=== PATIENT | female | born 1980 | race Caucasian/White ===

== ENCOUNTER 2016-09-18 10:54 | Emergency (ER) | payer MEDICAID, OTHER ==
[2016-05-13 07:44] VITALS: BMI 19.1
[2016-09-18] MEDS ORDERED: Lactated Ringer's 1,000 ML IV ONE (11:03)
[2016-09-18 11:37] VITALS: TEMP 97.3
[2016-09-18 11:46] LABS: EOS % 0.1 % (0.0-4.0); LYMPH # 0.4 K/uL (1.0-4.3); MONO # 0.3 K/uL (0.0-0.8); MONO % 3.6 % (0.0-10.0); RBC 2.74 Mil/uL (3.80-5.20); RED CELL DISTRIBUTION WIDTH 12.4 % (11.5-14.5)
[2016-09-18 11:58] LABS: GFR AFRICAN-AMERICAN > 60; GFR NON-AFRICAN AMERICAN > 60
[2016-09-18 11:59] LABS: ALT/SGPT 24 U/L (9-52); AST/SGOT 25 U/L (14-36); BASO % 0.1 % (0.0-2.0); BLOOD UREA NITROGEN 6 mg/dL (7-17); HEMOGLOBIN 9.7 g/dL (11.0-16.0); LYMPH % 4.9 % (20.0-40.0); MEAN CORPUSCULAR HEMOGLOBIN 35.3 pg (27.0-31.0); MEAN CORPUSCULAR HGB CONC 34.2 g/dL (33.0-37.0); MEAN PLATELET VOLUME 8.7 fL (7.2-11.7); NEUT # 7.6 K/uL (1.8-7.0); NEUT % 91.3 % (50.0-75.0); PLATELET COUNT 151 K/uL (130-400); URIC ACID 2.8 mg/dL (2.2-7.5)
[2016-09-18 12:00] LABS: CALCIUM 8.4 mg/dl (8.6-10.4)
[2016-09-18 12:01] LABS: MEAN CELL VOLUME 103.2 fL (81.0-99.0); WHITE BLOOD COUNT 8.3 K/uL (4.8-10.8)
[2016-09-18 12:04] LABS: SQUAMOUS EPITHIAL 6 /hpf (0-5); URINE BILIRUBIN NEGATIVE (NEGATIVE); URINE BLOOD 1+ (NEGATIVE); URINE CLARITY Clear (Clear); URINE COLOR Yellow (YELLOW); URINE GLUCOSE (UA) 1+ mg/dL (Normal); URINE LEUKOCYTE ESTERASE TRACE Leu/uL (Negative); URINE NITRATE NEGATIVE (NEGATIVE); URINE PROTEIN NEGATIVE (NEGATIVE); URINE UROBILINOGEN NORMAL mg/dL (0.2-1.0)
[2016-09-18 12:11] LABS: PROTHROMBIN TIME 10.6 SECONDS (9.7-12.2)
[2016-09-18 12:29] LABS: BANDS 8 % (0-2); EOSINOPHIL 2 % (0-4); LYMPHOCYTE 7 % (20-40); MONOCYTE 7 % (0-10); NEUTROPHIL 76 % (50-75); PLATELET ESTIMATE NORMAL (NORMAL); TOTAL CELLS COUNTED 100
[2016-09-18] MEDS ORDERED: Apap-Butalbital-Caffeine 325-50-40mg Tab PO STA (12:39)
[2016-09-18] MEDS ORDERED: Sodium Chloride 0.9% 1,000 ML IV SCH (13:00)
--- NOTE | 2016-09-18 16:39 | OBHP ---
Datetime: 09/18/2016 11:05 IP Adm Impression: , intrauterine IP Chief Complaint Other: headache IP Adm Impression Other: uti IP Admit Plan: Discharge home Admit Comment, IP Provider: chief complaint-hedache HPI 35 y/o at 29.1 wga with c/o headache since last last evening.Headche is bilateral on both sides of head and back of heada.patient states that it is dull /throbbing and constant.She took tly enol at 6 pm yesterday but had no relife.has been drinking fluids but no relife as such.Headche was w orse today and hence she came to er.She deneis any vision, changes, chest pain, shortness of breath, numbness or tingling in hands and feet.Denies epigastric pain or right upper quadrant pain Patient ate cereala nd milk at 9.30 am and then came to hospital course-AMA at delivery; hx of geital herpes outbreak in may; Abnormal quad screen.had g enetic cousnelling but no amnio; hx of child with autistic spectrum disorder PMH denies PSH s/o left oophorectomy OBGYN HX ; hx of delivery with 1 and 2 nd child; last 2 deliveries full term; 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 hedacahe minimally improved with tylenol.Patient wi th hematuria.Had no blood in urine on UA done08/26/2016 .Repeat fs 208 -approx 4 hours after breakfast ) -give 1 tablet pof fioricet -normal saline at 125ml/hour -check fs in 2 hours 07/08 pm fs 2 hr later 43 patient given orange juice after which the blood sugar was 73mg/dl Patient states that she feels hungry and her headache is much improved now She denies any neurological symptoms A/P uti, elevated blood sugar initially and headache -headache improved with fioricet and iv fluids. -patient with elevated blood sugar after eating cereal but later on hypoglycemic and then euglycem ic.Patient advised to follow up in am in clinic and do 1 hour gtt .Emphasized the importance of blood sugar control in -UTI.Script for macrobid given -hsv outbreak in .no symptoms now.discussed starting valtrex for suppressive therapy now. patient states that she will discuss with her doctor tomorrow Pelvic Type - PN: Adequate Extremities - PN: Normal Abdomen - PN: Normal Back - PN: Normal Lungs - PN: Normal Heart - PN: Normal General - PN: Normal Contraction Comments Provider: none Gestation - Est Wks by US: 29.2 IP Hx Assessment: The History has been Reviewed and is Current Vital Signs Provider: Reviewed; Within Normal Limits FHR Category Provider Fetus A: Category I
== END 2016-09-18 16:24 | disposition home or self-care (01) ==
LOC: C.EROB 10:54
DX: O26.893 Other specified pregnancy related conditions, third trimester (principal); R51 Headache; R31.9 Hematuria, unspecified; Z3A.29 29 weeks gestation of pregnancy
CPT/HCPCS: 80053; 81001; 82948; 83615; 84550; 85025; 85384; 85610; 85730; 99283; J7040; J7120

== ENCOUNTER 2016-09-19 09:33 | Emergency (ER) | payer OTHER ==
[2016-09-19 09:50] VITALS: BMI 21.9
--- NOTE | 2016-09-19 11:37 | C.PDOC ---
History Of Present Illness 35 year old female who is 25 weeks presents to the ER with a complaint of a posterior headache for the past 2 days. Patient has not taken anything for the pain and is requesting a note for the work because she does not want to go to work tomorrow. Patient reports intermittent vomiting during her ; denies vaginal bleeding, vaginal discharge, dysuria, or abdominal pain. Time Seen by Provider: 09/19/16 10:24 Chief Complaint (Nursing): GI Problem History Per: Patient History/Exam Limitations: no limitations Onset/Duration Of Symptoms: Days (2) Current Symptoms Are (Timing): Still Present Preceeding Symptoms: None Associated Symptoms: denies: Photophobia, Blurred Vision, Nausea, Vomiting, Extremity Weakness Recent travel outside of the [place]: No Past Medical History Reviewed: Historical Data, Nursing Documentation, Vital Signs Vital Signs: Last Vital Signs Temp 97.7 F 09/19/16 13:51 Pulse 100 H 09/19/16 13:51 Resp 18 09/19/16 13:51 BP 101/62 09/19/16 13:51 Pulse Ox 100 09/19/16 13:51 - Medical History PMH: No Chronic Diseases Surgical History: No Surg Hx - [facility] Procedures MANUAL ASSIST DELIV NEC (03/11/14) Family History: States: Unknown Family Hx - Social History Hx Tobacco Use: No Hx Alcohol Use: No Hx Substance Use: No - Immunization History Hx Tetanus Toxoid Vaccination: No Hx Influenza Vaccination: No Hx Pneumococcal Vaccination: No Review Of Systems Constitutional: Negative for: Fever, Chills Eyes: Negative for: Vision Change Cardiovascular: Negative for: Chest Pain, Palpitations, Orthopnea, Edema, Light Headedness Respiratory: Negative for: Cough, Shortness of Breath, SOB with Excertion, Wheezing Gastrointestinal: Positive for: Vomiting (occasional). Negative for: Abdominal Pain, Diarrhea, Constipation Genitourinary: Negative for: Dysuria, Vaginal Discharge, Vaginal Bleeding Neurological: Positive for: Headache. Negative for: Weakness, Numbness Physical Exam - Physical Exam Appears: Well, Non-toxic Skin: Normal Color, Warm, Dry Head: Atraumatic, Normacephalic Eye(s): bilateral: Normal Inspection, PERRL, EOMI Oral Mucosa: Moist Throat: Normal, No Erythema, No Exudate Neck: Normal, No Midline Cervical Tenderness, No Paracervical Tenderness, Supple Chest: Symmetrical, No Tenderness Cardiovascular: Rhythm Regular, No Murmur Respiratory: Normal Breath Sounds, No Rales, No Rhonchi, No Wheezing Gastrointestinal/Abdominal: Soft, No Tenderness, No Mass, No Distention, Other ( Gravid) Back: Normal Inspection, No CVA Tenderness Extremity: Normal ROM Neurological/Psych: Oriented x3, Normal Speech, Normal Cognition, Normal Cranial Nerves, Other (No focal deficits) Gait: Steady ED Course And Treatment O2 Sat by Pulse Oximetry: 100 (Room air) Pulse Ox Interpretation: Normal Medical Decision Making Medical Decision Making: Patient is 25 weeks with headache. It is not the worst headache or her life. She has no fever, neck pain, or trauma history. She has normal BP. She is neurologically intact. Will give tylenol and benadryl for the pain; 12:25PM Patient feels better. UA shows rare bacteria but also 1 proteinuria. Jd treat with macrobid. Due to protein, Spoke to Dr. Suggs (OB) and she recommends that patient get 24 hour urine collection and that protein could be coming from the infection. Headache is now resolved. Used telescope operator and explained this to patient and she will follow-up with her OB in [place] tomorrow with 24 hour urine collection. She will return with any worsening symptoms. Her headache is resolved and BP continues to be normal. Disposition - Disposition Disposition: HOME/ ROUTINE Disposition Time: 12:26 Condition: GOOD Additional Instructions: Follow-up with your advertising representative within 2 days. You need 24 hour urine collection to evaluate for protein in your urine. Return to ED if condition worsens. Take vitamins. Take full course of antibiotics for uti Prescriptions: Nitrofurantoin Macrocrystals [Macrobid] 100 mg PO BID #20 cap Instructions: Urinary Tract Infection in (ED) Forms: Work Excuse Print Language: LAO - Clinical Impression Clinical Impression: Headache, UTI in - Scribe Statement The provider has reviewed the documentation as recorded by the Scribadrien Nicole All medical record entries made by the Scribe were at my direction and personally dictated by me. I have reviewed the chart and agree that the record accurately reflects my personal performance of the history, physical exam, medical decision making, and the department course for this patient. I have also personally directed, reviewed, and agree with the discharge instructions and disposition.
[2016-09-19 12:12] VITALS: PULSE 100; RESP 18
[2016-09-19 12:25] VITALS: O2SAT 100
[2016-09-19 13:06] LABS: SQUAMOUS EPITHIAL 8 /hpf (0-5); URINE BACTERIA RARE (<OCC); URINE BILIRUBIN NEGATIVE (NEGATIVE); URINE BLOOD 2+ (NEGATIVE); URINE CLARITY Clear (Clear); URINE COLOR Yellow (YELLOW); URINE GLUCOSE (UA) NORMAL (Normal); URINE LEUKOCYTE ESTERASE TRACE Leu/uL (Negative); URINE NITRATE NEGATIVE (NEGATIVE); URINE PROTEIN 1+ mg/dL (NEGATIVE)
[2016-09-19 13:53] VITALS: BP 101/62; TEMP 97.7
== END 2016-09-19 13:52 | disposition home or self-care (01) ==
LOC: C.ER 09:33
DX: R51 Headache (principal); O23.42 Unspecified infection of urinary tract in pregnancy, second trimester; Z3A.25 25 weeks gestation of pregnancy

== ENCOUNTER 2016-11-01 08:48 | Inpatient (IN) | payer MEDICAID, OTHER ==
[2016-10-13 13:24] VITALS: BMI 21.9
[2016-11-01] MEDS ORDERED: Lactated Ringer's 1,000 ML IV SCH (09:00)
[2016-11-01] MEDS ORDERED: Betamethasone Soluspan 30 mg/5mL Inj Susp IM STA (09:09)
[2016-11-01 09:21] LABS: BASO % 0.3 % (0.0-2.0); EOS % 0.3 % (0.0-4.0); HEMATOCRIT 32.5 % (34.0-47.0); LYMPH # 1.4 K/uL (1.0-4.3); LYMPH % 16.2 % (20.0-40.0); MEAN CELL VOLUME 102.6 fL (81.0-99.0); MEAN CORPUSCULAR HEMOGLOBIN 35.3 pg (27.0-31.0); MEAN CORPUSCULAR HGB CONC 34.4 g/dL (33.0-37.0); MEAN PLATELET VOLUME 8.8 fL (7.2-11.7); MONO # 0.5 K/uL (0.0-0.8); MONO % 6.3 % (0.0-10.0); RED CELL DISTRIBUTION WIDTH 13.2 % (11.5-14.5); WHITE BLOOD COUNT 8.5 K/uL (4.8-10.8)
[2016-11-01 09:27] LABS: RBC URINE 2 /hpf (0-3); URINE BACTERIA RARE (<OCC); URINE BILIRUBIN NEGATIVE (NEGATIVE); URINE BLOOD 2+ (NEGATIVE); URINE COLOR Yellow (YELLOW); URINE GLUCOSE (UA) NORMAL (Normal); URINE KETONE NEGATIVE (NEGATIVE); URINE LEUKOCYTE ESTERASE 1+ Leu/uL (Negative); URINE PROTEIN NEGATIVE (NEGATIVE); URINE UROBILINOGEN NORMAL mg/dL (0.2-1.0); WBC URINE 12 /hpf (0-5)
[2016-11-01] MEDS: Vancomycin 1 gm/NS 200 ml 1 GM/200 ML BAG IVPB SCH ×2 (09:32→20:58)
[2016-11-01 09:33] LABS: ALKALINE PHOSPHATASE 157 U/L (38-126); ALT/SGPT 28 U/L (9-52); AST/SGOT 29 U/L (14-36); BILIRUBIN,TOTAL 0.3 mg/dL (0.2-1.3); BLOOD UREA NITROGEN 4 mg/dL (7-17); CALCIUM 9.3 mg/dl (8.6-10.4); CARBON DIOXIDE 22 mmol/L (22-30); CHLORIDE 102 mmol/L (98-107); GFR AFRICAN-AMERICAN > 60; GLUCOSE,RANDOM 99 mg/dL (65-105); POTASSIUM 3.9 mmol/L (3.6-5.2); SODIUM 134 mmol/L (132-148); TOTAL PROTEIN 6.4 g/dL (6.3-8.3)
--- NOTE | 2016-11-01 09:57 | OBHP ---
Datetime: 11/01/2016 09:22 IP Adm Impression: , intrauterine IP Chief Complaint Other: back pain Admit Comment, IP Provider: chief complaint-back pain HPI 36 y/o at 35.3 wga with c/o back pain since monday.patient states that initially her p ain was mild initially but this morning it was severe and hence she came to [place].patient denies vagin al bleeding or loss of fluid.Patient with hx of genital herpoes.states that she was prescribed valtre x but she ahs not started taking it.denies any burning or stinging pain or any discomfort in her vul va or vagina. 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 -check labs and UA, urine drug screen -celestone 12 mg im stat -start vanco for gbs prophylaxis -iv fluid bolus Dr Dejesus called at [facility] for maternal transport as patient less than 36 weeks. Awaiting confirmation of transfer Pelvic Type - PN: Adequate Extremities - PN: Normal Abdomen - PN: Normal Back - PN: Normal Lungs - PN: Normal Heart - PN: Normal Neurologic - PN: Normal General - PN: Normal Presentation-Admit: Vertex Gestation - Est Wks by US: 35.3 EGA AdmitDate IP: 35.3 Vital Signs Provider: Reviewed; Within Normal Limits IP Chief Complaint: Uterine contractions FHR Category Provider Fetus A: Category I Dilatation, Provider: 4 Effacement, Provider: 80 Station, Provider: -2 Genitourinary Exam: Normal DTRs - PN: Normal
[2016-11-01] MEDS ORDERED: Betamethasone Soluspan 30 mg/5mL Inj Susp IM SCH (10:00)
--- NOTE | 2016-11-01 11:36 | OBADHP ---
Datetime: 11/01/2016 09:22 IP Chief Complaint Other: back pain Admit Comment, IP Provider: chief complaint-back pain HPI 36 y/o at 35.3 wga with c/o back pain since monday.patient states that initially her p ain was mild initially but this morning it was severe and hence she came to [place].patient denies vagin al bleeding or loss of fluid.Patient with hx of genital herpoes.states that she was prescribed valtre x but she ahs not started taking it.denies any burning or stinging pain or any discomfort in her vul va or vagina. 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 -check labs and UA, urine drug screen -celestone 12 mg im stat -start vanco for gbs prophylaxis -iv fluid bolus Dr Dejesus called at [facility] for maternal transport as patient less than 36 weeks. Awaiting confirmation of transfer Patient examined at 10.10am patent rpeorts getting uncofmoirtable with contractions cervix 4-5 cm now plan-admit -discussed with patient the possibility for transfer of baby to [facility] after dleivery .reviewed risk s associated with prematurity namely respiratory distress, hypoglycemia, seizures, delayed develpment al milestones etc.patient voices that she udnerstands tad risks associated with delivery Pelvic Type - PN: Adequate Extremities - PN: Normal Abdomen - PN: Normal Back - PN: Normal Lungs - PN: Normal Heart - PN: Normal Neurologic - PN: Normal General - PN: Normal Presentation-Admit: Vertex Gestation - Est Wks by US: 35.3 IP Hx Assessment: The History has been Reviewed and is Current Vital Signs Provider: Reviewed; Within Normal Limits IP Chief Complaint: Uterine contractions FHR Category Provider Fetus A: Category I Dilatation, Provider: 4 Effacement, Provider: 80 Station, Provider: -2 Genitourinary Exam: Normal DTRs - PN: Normal EGA AdmitDate IP: 35.3 IP Adm Impression: , intrauterine Datetime: 09/18/2016 11:05 IP Adm Impression Other: uti Contraction Comments Provider: none IP Admit Plan: Discharge home
[2016-11-01] MEDS ORDERED: Oxycodone/Acetaminophen 5/325 mg Tab PO PRN ×2 (14:21)
[2016-11-01] MEDS ORDERED: Clindamycin 600mg/50ml NS 600 MG/50 ML BAG IVPB ONE ×3 (14:30→18:00)
[2016-11-01] MEDS: Benzocaine/Menthol 20%-0.5% Topical Spray (60 ml) TOP PRN (18:16)
--- NOTE | 2016-11-01 22:31 | OBDS ---
DELIVERY PERSONNEL Delivery Doctor: Shawn Hoffman MD Exhibition Specialist: Natalia Lam RN Anesthesiologist: Cary Douglas MD MATERNAL INFORMATION Delivery Anesthesia: None Medications in Delivery: pitocin 20 units Estimated Blood Loss (ml): 200 Placenta Cultured: No Maternal Complications: None Other Maternal Complications: none RN Comments: uneventful delivery with living baby boy at [address] carrington at delivery to receive ba by Provider Comments: of male from REY position.nuchalx1 aroudn neckx2 around neck tight but reduced on perineum Body and shoulders delivered withoyt difficulty cord clamped and cut cord segment taken for cord bood ph Placenta partially sponatneously.bleeidng noticed and the rmaining protion removed manua lly.Uterus empty.no laceration of perineum or vulav noted.fundsu firm;patient stable.total ebl 200cc LABOR SUMMARY EDC: 12/03/2016 00:00 No. Babies in Womb: 1 Attempted: No Labor Anesthesia: None LABOR INFORMATION Reason for Induction: Not Applicable Onset of Labor: 11/01/2016 02:00 Complete Dilatation: 11/01/2016 14:00 Other Ripening Agents: none Oxytocin: N/A Group B Beta Strep: Done, Result Unknown Antibiotics # of Doses: 1 Steroids Given: < 24 Hours before Delivery Reason Steroids Not Administered: Not Applicable; Imminent Delivery MEMBRANES Membranes Rupture Method: Spontaneous Rupture of Membranes: 11/01/2016 14:00 Length of Rupture (hrs): 0.07 Amniotic Fluid Color: Clear Amniotic Fluid Amount: Moderate Amniotic Fluid Odor: None STAGES OF LABOR Stage 1 hrs: 12 Stage 1 min: 0 Stage 2 hrs: 0 Stage 2 min: 4 Stage 3 hrs: 0 Stage 3 min: 9 Total Time in Labor hrs: 12 Total Time in Labor min: 13 VAGINAL DELIVERY Episiotomy: None Laceration Extension: N/A Laceration Type: None Other Laceration: none Laceration Repair: Not Applicable Initial Vag Sponge Count: 10 Final Vag Sponge Count: 10 Initial Vag Sharps Count: 0 Final Vag Sharps Count: 0 Sponge Count Correct: Yes; Vaginal Sweep Performed Sharps Count Correct: N/A BABY A INFORMATION Infant Delivery Date/Time: 11/01/2016 14:04 Method of Delivery: Vaginal Born in Route : No : N/A Forceps: N/A Vacuum Extraction: N/A Shoulder Dystocia : No SHOULDER DYSTOCIA BABY A Delivery Date/Time: 11/01/2016 14:04 PRESENTATION/POSITION BABY A Presentation: Cephalic Cephalic Presentation: Vertex Vertex Position: Left Occipital Anterior Breech Presentation: N/A PLACENTA INFORMATION BABY A Placenta Delivery Time : 11/01/2016 14:13 Placenta Method of Delivery: Expressed Placenta Status: Delivered SCORES BABY A Heart Rate 1 min: >100 bpm Resp Effort 1 min: Good Cry Reflex Irritability 1 min: Cough or Sneeze or Pulls Away Muscle Tone 1 min: Active Motion Color 1 min: Body [place], Extremities Blue SCORE 1 MIN: 9 Heart Rate 5 min: >100 bpm Resp Effort 5 min: Good Cry Reflex Irritability 5 min: Cough or Sneeze or Pulls Away Muscle Tone 5 min: Active Motion Color 5 min: Body [place], Extremities Blue SCORE 5 MIN: 9 INFANT INFORMATION BABY A Gestational Age at Delivery: 35.3 Gestational Status: Infant Outcome : Liveborn Infant Condition : Stable Sex: Male IDENTIFICATION/MEDS BABY A ID Band Number: [id number] ID Band Location: Left Leg Sensor Applied: Yes Sensor Number: [id number] Sensor Location : Cord Clamp Vitamin K Given : Aquamephyton 1 mg IM Erythromycin Given: Given Both Eyes WEIGHT/LENGTH BABY A Infant Birthweight (gms): 2535 Infant Weight (lb): 5 Weight (oz): 9 Infant Length Inches: 19.00 Length cms: 48.3 CORD INFORMATION BABY A No. Cord Vessels: 3 Nuchal Cord : Around Neck x2, Tight Nuchal Cord Other: 0 True Knot: 0 Cord Blood Taken: Yes Infant Suction: Mouth; Nose ASSESSMENT BABY A Infant Complications: None Physical Findings at Delivery: Within Normal Limits Respirations: Appears Normal Insert Cutter/ALS Called : No Infant Care By: [place] ponce and dr. carrington Transferred To: Remains with Mother
--- NOTE | 2016-11-02 07:20 | OBPPN ---
Datetime: 11/02/2016 07:16 PP Pain Prov: Within normal limits PP Nausea Prov: Denies PP Flatus Prov: Yes PP Abdomen/Uterus Prov: Normal PP Lochia Prov: Normal PP Extremities Prov: Normal PP Comments Phys Exam Prov: fudus below umblicus ext mil;d edma,no calf ten PP Impression Prov: Normal progression PP Plan Prov: Continue present management PP Progress Note Prov: t was seen at bed side, pain under control,no n/v, tolerating deit voiding,mi n lochia, flatus - ppd#1s/p cbc reg deit cont pain mamagement cont post care encourage ambulation Vital Signs Provider PP: Reviewed; Within Normal Limits
[2016-11-02 07:38] LABS: BASO % 0.1 % (0.0-2.0); HEMATOCRIT 27.8 % (34.0-47.0); LYMPH # 1.6 K/uL (1.0-4.3); MEAN CELL VOLUME 101.5 fL (81.0-99.0); MEAN CORPUSCULAR HEMOGLOBIN 34.6 pg (27.0-31.0); MEAN CORPUSCULAR HGB CONC 34.1 g/dL (33.0-37.0); MONO # 0.6 K/uL (0.0-0.8); RED CELL DISTRIBUTION WIDTH 13.1 % (11.5-14.5); WHITE BLOOD COUNT 11.6 K/uL (4.8-10.8)
[2016-11-03 08:38] VITALS: BP 89/52; TEMP 98.6
[2016-11-03] MEDS: Benzocaine/Menthol 20%-0.5% Topical Spray (60 ml) TOP PRN (09:23)
[2016-11-03 18:11] VITALS: PULSE 70; RESP 18; O2SAT 99
--- NOTE | 2016-11-04 00:05 | OBPPN ---
Datetime: 11/03/2016 23:59 PP Pain Prov: Within normal limits PP Nausea Prov: Denies PP Flatus Prov: Yes PP BM Prov: Yes PP Breasts Prov: Normal PP Heart Prov: Normal PP Lungs Prov: Normal PP Abdomen/Uterus Prov: Normal PP Lochia Prov: Normal PP Vulva/Perineum Prov: Normal PP CVA Tenderness Prov: Normal PP Extremities Prov: Normal PP C/S Incision Prov: Not Applicable PP Progress Prov: Normal PP Comments Phys Exam Prov: Abdomen: soft. non distended. Fundus firm, mobile, non tender at 16 week s. Minimal lochia rubra All other systems reviewed and are negative PP Impression Prov: Normal progression PP Plan Prov: Discharge PP Progress Note Prov: Patient seen and evaluated in the morning 11/03/16; received in room 460. Onelia ast- and bottlefeeding. P.E.: as above. WD in NAD. Awake, alert, oriented to time, person and place. Pleasant and coopera tive - PPD#1 H/H 9.5/27.8 Assessment: PPD#2, 36 y.o. P2305, S/P at 35+ weeks. Afebrile, vital signs stable. Desires p ermanent sterilization. Clinically stable. Plan: 1) discharge home 2) see full discharge instructions Vital Signs Provider PP: Reviewed
--- NOTE | 2016-11-04 00:07 | OBDCSUM ---
Datetime: 11/03/2016 08:31 Discharge Diagnosis, Provider: Delivery Contraception discussed, Prov: Yes Discharge Diagnosis Prov Other: Anemia Contraception counseling Contraception after Delivery: Tubal Ligation
== END 2016-11-03 14:09 | disposition home or self-care (01) | DRG 372 ==
LOC: C.EROB 08:48 → C.4D 10:32 → C.4M 16:53
PROVIDERS: ADMIT Student in an Organized Health Care Education/Training Program; ATTEND Student in an Organized Health Care Education/Training Program
PROC: 10E0XZZ Delivery of Products of Conception, External Approach (ICD-10-PCS; principal; 2016-11-01)
DX: O60.14X0 Preterm labor third trimester with preterm delivery third trimester, not applicable or unspecified (principal); O45.93 Premature separation of placenta, unspecified, third trimester; O69.1XX0 Labor and delivery complicated by cord around neck, with compression, not applicable or unspecified; Z3A.35 35 weeks gestation of pregnancy; Z37.0 Single live birth

== ENCOUNTER 2017-09-23 08:45 | Emergency (ER) | payer OTHER ==
[2017-09-23 08:57] VITALS: PULSE 70; TEMP 97.5
--- NOTE | 2017-09-23 09:54 | C.PDOC ---
History Of Present Illness 37 y/o female c/o lower back pain on left side x 2 days., less today after taking tylenol. no associated numbness, tingling, radiation of pain. no fever, no urinary symptoms. Time Seen by Provider: 09/23/17 09:19 Chief Complaint (Nursing): Back Pain History Per: Patient History/Exam Limitations: no limitations Onset/Duration Of Symptoms: Days (2) Quality Of Discomfort: "Pain" Associated Symptoms: denies: Incontinence, New Weakness, New Numbness Past Medical History Reviewed: Historical Data, Nursing Documentation, Vital Signs Vital Signs: Last Vital Signs Temp 97.5 F L 09/23/17 08:55 Pulse 70 09/23/17 11:19 Resp 16 09/23/17 11:19 BP 105/68 09/23/17 11:19 Pulse Ox 99 09/23/17 11:19 - Medical History PMH: No Chronic Diseases Denies: Depression, Diabetes, HTN Surgical History: No Surg Hx - [facility] Procedures DELIVERY OF PRODUCTS OF CONCEPTION, EXTERNAL APPROACH (11/01/16) MANUAL ASSIST DELIV NEC (03/11/14) Family History: States: Unknown Family Hx - Social History Hx Tobacco Use: No Hx Alcohol Use: No Hx Substance Use: No - Immunization History Hx Tetanus Toxoid Vaccination: No Hx Influenza Vaccination: No Hx Pneumococcal Vaccination: No Review Of Systems Constitutional: Negative for: Fever, Chills Genitourinary: Negative for: Dysuria, Frequency, Incontinence Musculoskeletal: Positive for: Back Pain (left-sided) Neurological: Negative for: Weakness, Numbness Physical Exam - Physical Exam Appears: Non-toxic, No Acute Distress Skin: Warm, Dry Head: Atraumatic, Normacephalic Eye(s): bilateral: Normal Inspection Nose: Normal Neck: Normal ROM, No Midline Cervical Tenderness, No Paracervical Tenderness, Supple Chest: Symmetrical, No Tenderness Cardiovascular: Rhythm Regular, No Murmur Respiratory: Normal Breath Sounds, No Rales, No Rhonchi, No Wheezing Gastrointestinal/Abdominal: Normal Exam, Soft, No Tenderness, No Guarding, No Rebound Back: Other (mild left lumbar tenderness) Extremity: Normal ROM, No Tenderness Neurological/Psych: Oriented x3, Normal Speech, Normal Cognition, Normal Motor, Normal Sensation, Normal Reflexes, Other (no focal deficits) ED Course And Treatment O2 Sat by Pulse Oximetry: 100 (RA) Pulse Ox Interpretation: Normal Medical Decision Making Medical Decision Making: Plan: Motrin 600mg PO POC Urine Test Disposition Counseled Patient/Family Regarding: Diagnosis, Need For Followup, Rx Given - Disposition Referrals: [facility] [Outside] Disposition: HOME/ ROUTINE Disposition Time: 11:06 Condition: GOOD Additional Instructions: Please take ibuprofen for pain if needed. Avoid heavy lifting. Cold compresses to back for pain. FOllow up with your doc tor or in medical clinic. Prescriptions: Ibuprofen [Motrin] 600 mg PO TID #30 tab Forms: ONEPLE (Azeri), Gen Discharge Inst Azeri Print Language: OMANI - Clinical Impression Clinical Impression: Lumbar sprain - PA / LEHR CUTTER / Resident Statement MD/DO has reviewed & agrees with the documentation as recorded. - Scribe Statement The provider has reviewed the documentation as recorded by the Scribe (Shen Parks) All medical record entries made by the Scribe were at my direction and personally dictated by me. I have reviewed the chart and agree that the record accurately reflects my personal performance of the history, physical exam, medical decision making, and the department course for this patient. I have also personally directed, reviewed, and agree with the discharge instructions and disposition.
[2017-09-23 11:20] VITALS: BP 105/68; RESP 16
[2017-09-23 13:14] VITALS: O2SAT 100
== END 2017-09-23 11:19 | disposition home or self-care (01) ==
LOC: C.ER 08:45
DX: S33.5XXA Sprain of ligaments of lumbar spine, initial encounter (principal); X58.XXXA Exposure to other specified factors, initial encounter